=== PATIENT | female | born 1990 | race Caucasian/White ===

== ENCOUNTER 2018-02-27 21:35 | Emergency (ER) | payer OTHER ==
[2018-02-27 21:38] VITALS: TEMP 100; BMI 43.5
[2018-02-27] MEDS ORDERED: ACETAMINOPHEN 325 MG TABLET (FP) ONE ×2 (22:22→23:11)
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
[2018-02-27] MEDS ORDERED: DEXAMETHASONE LIQUID 0.5 MG/5 ML 240 ML BULK BOTTLE PO ONE (22:43)
--- NOTE | 2018-02-27 22:55 | PDOC ---
History of Present Illness - General Chief Complaint: Asthma Stated Complaint: Shortness of Breath Time Seen by Provider: 02/27/18 22:29 History Source: Patient Exam Limitations: No Limitations - History of Present Illness Initial Comments: 02/27/18 22:54 This is a 27 YOF with h/o morbid obesity, childhood RAD, and recently diagnosed bronchitis (seen in an outside ED for SOB/wheezing/cough, tx initially with Albuterol MDI prn and 5 day course of prednisone, then seen about a week ago at for continued sxs and tx with Z-pack which she just finished yesterday) who p /w continued SOB/wheezing/cough with additional onset upper chest tightness and feeling of panic tonight "like I'm drowning". She has never had respiratory symptoms this bad before. She has been coughing up fluid/phlegm and occasional blood-streaked sputum. She has been having leg swelling since the summer and it is both legs equally, no associated calf pain. Over the past few weeks she has had difficulty laying down flat and has needed to sleep sitting up. She also has more difficulty climbing stairs now, needs to stop to rest on the way up. This is not something she experienced previously. LMP was two years ago because she had the Implanon placed, but she did have this removed and has still not menstruated. Does not believe she is . 02/27/18 23:10 Patient had thorough screening evaluations in early January 2018 prior to the onset of symptoms. She had these tests because she was trying to get clearance to have gastric sleeve. 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 Part of the reason they did this was they found EKG changes on screening EKG concerning for possible prior NM. Past History - Past Medical History Allergies/Adverse Reactions: Allergies Allergy/AdvReac Type Severity Reaction Status Date / Time Penicillins Allergy Verified 02/27/18 21:39 Home Medications: Ambulatory Orders Albuterol 0.083% Nebulizer Lilli [Ventolin 0.083% Nebulizer Soln -] 1 neb NEB Q6H 02/27/18 Asthma: Yes COPD: No - Surgical History Cholecystectomy: Yes - Suicide/Smoking/Psychosocial Hx Smoking History: Never smoked Review of Systems - Review of Systems Able to Perform ROS?: Yes Constitutional: Yes: Weakness (on exertion). No: Chills, Fever, Unexplained wgt Loss HEENTM: Yes: Throat Pain. No: Nose Congestion Respiratory: Yes: Cough, Orthopnea, Shortness of Breath, SOB with Exertion, SOB at Rest, Wheezing, Productive cough. No: Stridor Cardiac (ROS): Yes: Edema, Chest Tightness. No: Lightheadedness, Palpitations, Syncope ABD/GI: No: Constipated, Diarrhea, Nausea, Vomiting : No: Burning, Dysuria, Hematuria Musculoskeletal: No: Back Pain, Neck Pain Integumentary: No: Bruising, Rash Neurological: Yes: Headache. No: Numbness, Tingling, Weakness, Dizziness Endocrine: Yes: Unexplained Weight Gain (states about 2 lbs). No: Unexplained Weight Loss *Physical Exam - Vital Signs Last Vital Signs Temp Pulse Resp BP Pulse Ox 100 F H 118 H 20 143/95 100 02/27/18 21:36 02/27/18 21:36 02/27/18 21:36 02/27/18 21:36 02/27/18 21:36 02/27/18 23:05 GENERAL: pleasant adult female, on DuoNeb treatment just ending at the beginning of my H&P, answers questions appropriately in full sentences, nourished, A/Ox4, morbidly elevated BMI HEENT: PERRLA, EOMI, moist mucous membranes, no posterior pharyngeal erythema, no tonsillar swelling or exudates, no cervical lymphadenopathy NECK: No midline ttp, no spinal stepoff or deformity, full ROM, supple CARDIOVASCULAR: Rapid regular rate, normal S1S2, no MGR, radial and DP pulses 2 + and symmetric, capillary refill <2 seconds, extremities warm and well-perfused LUNGS/RESPIRATORY: Mild respiratory distress, normal and symmetric chest movements during respirations, good air movement bilaterally (after one DuoNeb tx given in triage), bilateral expiratory wheezed and rhonchi with R>L, no cyanosis, no nail clubbing GI/ABDOMEN: Normal symmetric appearance, normoactive bowel sounds, soft, no tenderness to palpation, no midline pulsatile masses, no palpated organomegaly BACK: No midline ttp or stepoff or deformity of thoracic or lumbar spine EXTREMITIES: distal pulses 2+, warm and well-perfused, no LE pitting edema SKIN: Warm and dry, no pallor, no jaundice, no bruising, no rash, no skin breakdown, no cuts, no lesions, no eczema NEUROLOGICAL: GCS 15, CN II-XII grossly intact, ambulating with normal gait, moving all extremities, 5/5 strength proximally and distally, no facial droop, no decreased sensation Heart Score/ECG Review - History History: Slightly suspicious - Age Age: </= 45 - Risk Factors Risk Factors Heart Score: Yes Hx Obesity Based on the list above the patient has:: 1-2 risk factors ED Treatment Course - LABORATORY CBC & Chemistry Diagram: 02/27/18 23:20 Medical Decision Making - Medical Decision Making 02/27/18 23:09 Pt p/w SOB, cough, chest discomfort, and fever. Initial Vital Signs Temp Pulse Resp BP Pulse Ox 100 F H 118 H 20 143/95 100 02/27/18 21:36 02/27/18 21:36 02/27/18 21:36 02/27/18 21:36 02/27/18 21:36 Exam: As noted in Physical Exam section. DDX IBNLT: PNA, bronchitis, asthma, COPD, CHF, other lung disease, viral URI ( e.g. influenza), laryngitis, tracheitis, etc. W/U ordered: CXR EKG CBCD CMP Mg Phos Cardiac panel BNP TSH UA UCx U-Preg TX ordered: PO Decadron, Tylenol 02/27/18 23:59 Patient's care is endorsed to night team resident at the end of my shift. Pending remaining lab results, CXR, EKG, and re-assessment after ED tx. *DC/Admit/Observation/Transfer Diagnosis at time of Disposition: Wheezing, Cough - Discharge Dispostion Condition at time of disposition: Stable - Referrals - Patient Instructions - Post Discharge Activity
[2018-02-27] MEDS ORDERED: ALBUTEROL SO4 2.5/IPRATROPIUM 0.5 INH SOL 3 ML VIAL.NEB. NEB ONE (23:03)
[2018-02-27] MEDS ORDERED: DEXAMETHASONE SOD PHOSPHATE 10 MG/1 ML VIAL ONE (23:11)
[2018-02-27 23:26] LABS: BASO % 0.5 % (0-2.0); EOS % 5.7 % (0-4.5); HEMATOCRIT 38.3 % (32.4-45.2); HEMOGLOBIN 12.7 GM/dL (10.7-15.3); LYMPH % 20.2 % (8-40); MCH 26.1 pg (25.7-33.7); MCHC 33.1 g/dl (32.0-36.0); MEAN CELL VOLUME 78.9 fl (80-96); MEAN PLT VOLUME 7.8 fl (7.5-11.1); MONO % 4.9 % (3.8-10.2); NEUT % 68.7 % (42.8-82.8); PLATELET COUNT 271 K/MM3 (134-434); RBC 4.85 M/mm3 (3.60-5.2); RDW 14.5 % (11.6-15.6); WHITE BLOOD COUNT 15.3 K/mm3 (4.0-10.0)
[2018-02-27 23:50] LABS: MAGNESIUM 2.1 mg/dL (1.8-2.4); PHOSPHOROUS 2.9 mg/dL (2.5-4.9)
[2018-02-28] MEDS ORDERED: MONTELUKAST NA 10 MG TABLET PO ONE (00:01)
[2018-02-28 00:04] LABS: URINE APPEARANCE CLEAR; URINE BILIRUBIN NEGATIVE (<2.0 mg/dL); URINE COLOR YELLOW; URINE GLUCOSE (UA) NEGATIVE (NEGATIVE); URINE KETONE NEGATIVE (NEGATIVE); URINE LEUK ESTERASE NEGATIVE (NEGATIVE); URINE NITRITE NEGATIVE (NEGATIVE); URINE PROTEIN NEGATIVE (NEGATIVE)
[2018-02-28 00:05] LABS: HCG,QUALITATIVE URINE Negative
[2018-02-28] MEDS ORDERED: MONTELUKAST NA 10 MG TABLET ONE (00:06)
--- NOTE | 2018-02-28 00:26 | PDOC ---
*Physical Exam - Vital Signs Last Vital Signs Temp Pulse Resp BP Pulse Ox 100 F H 118 H 20 143/95 100 02/27/18 21:36 02/27/18 21:36 02/27/18 21:36 02/27/18 21:36 02/27/18 21:36 ED Treatment Course - LABORATORY CBC & Chemistry Diagram: 02/27/18 23:20 02/27/18 23:20 - ADDITIONAL ORDERS Additional order review: Laboratory Results 02/27/18 02/27/18 23:50 23:20 Phosphorus 2.9 Magnesium 2.1 Urine HCG, Qual Negative 02/27/18 23:20 RBC 4.85 MCV 78.9 L MCHC 33.1 RDW 14.5 MPV 7.8 Neutrophils % 68.7 Lymphocytes % 20.2 Monocytes % 4.9 Eosinophils % 5.7 H Basophils % 0.5 - Medications Given in the ED: ED Medications Discontinued Medications Generic Name Dose Route Start Last Admin Trade Name Freq PRN Reason Stop Dose Admin Albuterol/Ipratropium 3 amp 02/27/18 23:03 02/27/18 23:32 Duoneb - NEB 02/27/18 23:04 3 amp ONCE ONE Administration Dexamethasone 10 mg 02/27/18 22:43 02/27/18 23:32 Decadron Liquid - PO 02/27/18 22:44 10 mg ONCE ONE Administration Montelukast Sodium 10 mg 02/28/18 00:01 02/28/18 00:10 Singulair - PO 02/28/18 00:02 10 mg ONCE ONE Administration Medical Decision Making - Medical Decision Making 02/28/18 00:24 Received sign out from Dr. James. Pt still pending labs, CXR. EKG shows: NSR @ 70 bpm. QTc [address] segment elevations or depressions noted. 02/28/18 01:26 Labs unremarkable except WBC at 15.3 CXR with possible RLL infiltrates. Will give doxycycline 100 mg PO Pt to be discharged with doxycycline 100 mg bid for 7 days total. Pt to f/u with PCP in 1 week. Pt to return to ER if worsening of current symptoms or onset of new concerning symptoms. *DC/Admit/Observation/Transfer Diagnosis at time of Disposition: Wheezing, Cough - Discharge Dispostion Disposition: HOME Condition at time of disposition: Stable Decision to Admit order: No - Prescriptions Prescriptions: Doxycycline Hyclate [Vibramycin] 100 mg PO BID #14 capsule - Referrals - Patient Instructions Printed Discharge Instructions: Asthma -- Adult Additional Instructions: Please complete your antibiotics until they are finished. You have been prescribed doxycycline 100 mg to take twice a day for 7 days. Follow up with your primary care doctor in 1 week. Come back to the ER if you have worsening of your current symptoms or if you develop new concerning symptoms. - Post Discharge Activity
[2018-02-28 00:33] LABS: EPI CELLS RARE /HPF (FEW); URINE MUCUS RARE
[2018-02-28] MEDS ORDERED: DOXYCYCLINE HYCLATE 100 MG CAPSULE PO ONE ×2 (01:21→01:31)
[2018-02-28 01:24] LABS: ALBUMIN 3.4 g/dl (3.4-5.0); ALK PHOS 82 U/L (45-117); ANION GAP 8 MMOL/L (8-16); BILIRUBIN,TOTAL 0.2 mg/dL (0.2-1); BLOOD UREA NITROGEN 11 mg/dL (7-18); CALCIUM 8.3 mg/dL (8.5-10.1); CHLORIDE 109 mmol/L (98-107); CO2 26 mmol/L (21-32); GLUCOSE,RANDOM 127 mg/dL (74-106); N-TERMINAL BNP 28.5 pg/ml (5-125); POTASSIUM 4.1 mmol/L (3.5-5.1); SGOT/AST 16 U/L (15-37); SGPT/ALT 29 U/L (13-61); SODIUM 143 mmol/L (136-145)
[2018-02-28 01:27] VITALS: BP 146/77; PULSE 87
--- NOTE | 2018-03-01 10:33 | EKG ---
Test Reason : Blood Pressure : / mmHG Vent. Rate : 070 BPM Atrial Rate : 070 BPM P-R Int : 152 ms QRS Dur : 098 ms QT Int : 394 ms P-R-T Axes : 033 048 015 degrees QTc Int : 425 ms NORMAL SINUS RHYTHM WITH SINUS ARRHYTHMIA POSSIBLE ANTERIOR INFARCT , AGE UNDETERMINED ABNORMAL ECG NO PREVIOUS ECGS AVAILABLE Confirmed by EDISON ROSE, REINA ([id number]) on 03/01/2018 10:33:38 AM Referred By: Confirmed By:REINA HOGAN MD
== END 2018-02-28 01:39 | disposition home or self-care (01) ==
LOC: JERFT 21:35 → JER 21:35
PROC: 3E0F7GC Introduction of Other Therapeutic Substance into Respiratory Tract, Via Natural or Artificial Opening (ICD-10-PCS; principal; 2018-02-27)
DX: J45.901 Unspecified asthma with (acute) exacerbation (principal); Z88.0 Allergy status to penicillin
CPT/HCPCS: 36415; 71046-TC-FY; 80053; 81003; 81015; 82550; 83735; 83880; 84100; 84484; 84703; 85025; 87086; 93005; 93010; 94640; 99282-25; J7620

== ENCOUNTER 2020-12-06 15:33 | Emergency (ER) | payer OTHER ==
[2020-12-06 16:02] VITALS: BP 147/82; PULSE 72; TEMP 98.4; BMI 39.9
== END 2020-12-06 17:39 | disposition home or self-care (01) ==
LOC: JER 15:33
DX: T78.3XXA Angioneurotic edema, initial encounter (principal); Z88.8 Allergy status to other drugs, medicaments and biological substances
CPT/HCPCS: 99283-25

== ENCOUNTER 2023-01-17 21:23 | Observation (INO) | payer OTHER ==
[2023-01-17 21:27] VITALS: BMI 31.9
[2023-01-17] MEDS ORDERED: ACETAMINOPHEN 1000 MG/100 ML BAG IVPB ONE (22:41)
[2023-01-17] MEDS ORDERED: ONDANSETRON 4 MG/2 ML VIAL IVPUSH ONE (22:41)
[2023-01-17] MEDS ORDERED: SODIUM CHLORIDE 1,000 ML IV STA (22:41)
[2023-01-17] MEDS ORDERED: morphine CARPU-JECT 4 MG/1 ML DISP.SYRIN IVPUSH ONE (22:43)
[2023-01-17] MEDS ORDERED: ONDANSETRON 4 MG/2 ML VIAL ONE (22:44)
[2023-01-17] MEDS ORDERED: morphine SULFATE 4 MG/ML VIAL ONE (22:44)
[2023-01-17] MEDS ORDERED: ACETAMINOPHEN INJECTION 100 ML IVPB ONE (22:44)
[2023-01-17 23:05] LABS: BASO % 0.8 % (0-2.0); EOS % 1.7 % (0-4.5); HEMATOCRIT 37.3 % (32.4-45.2); HEMOGLOBIN 12.2 GM/dL (10.7-15.3); LYMPH % 18.5 % (8-40); MCH 25.4 pg (25.7-33.7); MCHC 32.8 g/dl (32.0-36.0); MEAN CELL VOLUME 77.4 fl (80-96); MEAN PLT VOLUME 8.2 fl (7.5-11.1); MONO % 5.1 % (3.8-10.2); NEUT % 73.9 % (42.8-82.8); PLATELET COUNT 279 10^3/uL (134-434); RBC 4.81 M/mm3 (3.60-5.2); RDW 14.5 % (11.6-15.6); WHITE BLOOD COUNT 13.2 K/mm3 (4.0-10.0)
[2023-01-17 23:19] LABS: CALCIUM 8.2 mg/dL (8.5-10.1)
[2023-01-17 23:20] LABS: ALBUMIN 3.7 g/dl (3.4-5.0); BLOOD UREA NITROGEN 10.3 mg/dL (7-18); MAGNESIUM 2.1 mg/dL (1.8-2.4)
[2023-01-17 23:23] LABS: CREATININE 0.8 mg/dL (0.55-1.3)
[2023-01-17 23:24] LABS: BILIRUBIN,TOTAL 0.4 mg/dL (0.2-1)
[2023-01-17 23:25] LABS: TOT PROT 7.1 g/dl (6.4-8.2)
[2023-01-18] MEDS ORDERED: KETOROLAC TROMETHAMINE 30 MG/1 ML VIAL IVPUSH ONE (00:37)
[2023-01-18] MEDS ORDERED: KETOROLAC TROMETHAMINE 30 MG/1 ML VIAL ONE (00:38)
[2023-01-18 01:19] LABS: PH,URINE 7.5 (5.0-8.0); URINE APPEARANCE CLEAR; URINE BILIRUBIN NEGATIVE (NEGATIVE); URINE COLOR YELLOW; URINE GLUCOSE (UA) NEGATIVE (NEGATIVE); URINE KETONE TRACE (NEGATIVE); URINE LEUK ESTERASE NEGATIVE (NEGATIVE); URINE NITRITE NEGATIVE (NEGATIVE); URINE PROTEIN NEGATIVE (NEGATIVE)
[2023-01-18] MEDS ORDERED: MAG HYDROX/AL HYDROX/SIMETH 30 ML UNIT-DOSE CUP PO ONE (04:23)
[2023-01-18] MEDS ORDERED: FAMOTIDINE 20 MG/50 ML IVPB 20 MG/50 ML MG IVPB ONE ×2 (04:23→04:32)
[2023-01-18] MEDS ORDERED: SUCRALFATE 1 GM TABLET (FP) PO ONE (04:24)
[2023-01-18] MEDS ORDERED: ACETAMINOPHEN 1000 MG/100 ML BAG IVPB ONE (04:25)
[2023-01-18] MEDS ORDERED: FAMOTIDINE 20 MG TABLET ONE (04:31)
[2023-01-18] MEDS ORDERED: SUCRALFATE 1 GM TABLET (FP) ONE (04:32)
[2023-01-18] MEDS ORDERED: ACETAMINOPHEN INJECTION 100 ML IVPB ONE (04:32)
[2023-01-18] MEDS ORDERED: MAG HYDROX/AL HYDROX/SIMETH 30 ML UNIT-DOSE CUP ONE (04:32)
[2023-01-18] MEDS ORDERED: ONDANSETRON 4 MG/2 ML VIAL IVPUSH PRN (05:55)
[2023-01-18] MEDS ORDERED: KETOROLAC TROMETHAMINE 15 MG/ML VIAL ONE (06:34)
[2023-01-18] MEDS ORDERED: ONDANSETRON 4 MG/2 ML VIAL ONE (06:34)
[2023-01-18] MEDS: KETOROLAC TROMETHAMINE 15 MG/ML VIAL IVPUSH PRN (06:41)
[2023-01-18] MEDS: morphine SULFATE 4 MG/ML VIAL IVPUSH PRN (09:18)
[2023-01-18] MEDS ORDERED: ACETAMINOPHEN 1000 MG/100 ML BAG IVPB PRN (11:00)
[2023-01-18] MEDS: MEROPENEM 1 GM in DEXTROSE 5%-WATER 100 ML IVPB SCH ×2 (11:27→17:26)
[2023-01-18] MEDS ORDERED: DOCUSATE SODIUM 100 MG CAPSULE (FP) PO SCH (22:00)
[2023-01-19] MEDS: morphine SULFATE 4 MG/ML VIAL IVPUSH PRN (01:06)
[2023-01-19] MEDS: MEROPENEM 1 GM in DEXTROSE 5%-WATER 100 ML IVPB SCH ×3 (01:07→17:55)
[2023-01-19 10:12] LABS: BASO % 0.3 % (0-2.0); EOS % 2.3 % (0-4.5); HEMATOCRIT 38.6 % (32.4-45.2); HEMOGLOBIN 12.7 GM/dL (10.7-15.3); LYMPH % 36.3 % (8-40); MCH 25.4 pg (25.7-33.7); MEAN PLT VOLUME 8.4 fl (7.5-11.1); MONO % 6.1 % (3.8-10.2); PLATELET COUNT 285 10^3/uL (134-434); RBC 5.01 M/mm3 (3.60-5.2); RDW 14.3 % (11.6-15.6)
[2023-01-19 10:21] LABS: INR 1.07 (0.83-1.09); PROTHROMBIN TIME (PATIENT) 12.4 SEC (9.7-13.0)
[2023-01-19 10:24] LABS: ACTIVATED PTT 23.4 SECONDS (25.2-36.5)
[2023-01-19 10:40] LABS: POTASSIUM 3.7 mmol/L (3.5-5.1)
[2023-01-19 10:42] LABS: ALBUMIN 3.4 g/dl (3.4-5.0)
[2023-01-19 10:44] LABS: BLOOD UREA NITROGEN 5.4 mg/dL (7-18)
[2023-01-19 10:45] LABS: CREATININE 0.7 mg/dL (0.55-1.3)
[2023-01-19 10:47] LABS: BILIRUBIN,TOTAL 0.6 mg/dL (0.2-1); TOT PROT 6.5 g/dl (6.4-8.2)
[2023-01-19 16:06] VITALS: BP 144/84; PULSE 55; RESP 18; TEMP 99.4
[2023-01-19] MEDS: KETOROLAC TROMETHAMINE 15 MG/ML VIAL IVPUSH PRN (17:55)
== END 2023-01-19 19:10 | disposition home or self-care (01) ==
LOC: JER 21:23 → JERBED 01-18 04:38 → J5S 01-18 08:14
PROVIDERS: ADMIT Internal Medicine; ATTEND Family Medicine
PROC: 3E033NZ Introduction of Analgesics, Hypnotics, Sedatives into Peripheral Vein, Percutaneous Approach (ICD-10-PCS; principal; 2023-01-18)
PROC: 3E033GC Introduction of Other Therapeutic Substance into Peripheral Vein, Percutaneous Approach (ICD-10-PCS; 2023-01-18)
PROC: 3E0333Z Introduction of Anti-inflammatory into Peripheral Vein, Percutaneous Approach (ICD-10-PCS; 2023-01-18)
PROC: 3E033GC Introduction of Other Therapeutic Substance into Peripheral Vein, Percutaneous Approach (ICD-10-PCS; 2023-01-18)
PROC: 3E0337Z Introduction of Electrolytic and Water Balance Substance into Peripheral Vein, Percutaneous Approach (ICD-10-PCS; 2023-01-18)
DX: N73.9 Female pelvic inflammatory disease, unspecified (principal); N83.202 Unspecified ovarian cyst, left side; Z98.84 Bariatric surgery status; Z86.16 Personal history of COVID-19; Z97.5 Presence of (intrauterine) contraceptive device; Z90.49 Acquired absence of other specified parts of digestive tract
CPT/HCPCS: 36415; 74177-TC; 76830-TC; 80048; 80053; 81003; 83605; 83690; 83735; 84703; 85025; 85610; 85730; 87040; 87086; 87491; 87591; 99285-25; G0378; Q9967